=== PATIENT | male | born 1965 | race African-American/Black ===

== ENCOUNTER 2022-06-30 10:13 | Emergency (ER) | payer MEDICAID ==
[2022-06-30] MEDS ORDERED: KETOROLAC 30 MG/ML VIAL IM STA (12:40)
--- NOTE | 2022-06-30 12:43 | ED Physician Documentation ---
History of Present Illness - Stated complaint Stated Complaint: BACK PX - Chief complaint Chief Complaint: Back Pain - Additonal information Additional information: Very pleasant 56-year-old male who has a history of cerebral palsy presents to the emergency department for evaluation of acute right lower back pain. Reports that it began yesterday when he was simply bending over. He states that due to the cerebral palsy he occasionally does have back pain because he knows that he walks differently. He is had no falls or trauma. No saddle anesthesia loss of bowel or bladder function. Denies any history of cancer, diabetes, injection drug use. His friend did give him 3 Tylenol over the course the day yesterday which he reports moderately improved the pain. Review of Systems Constitutional: denies: Fever, Chills : denies: Testicular pain Skin: reports: Reviewed and negative Musculoskeletal: reports: Back pain. denies: Neck pain, Joint pain, Extremity swelling Neurologic: reports: Reviewed and negative Psychiatric: reports: Reviewed and negative PD PAST MEDICAL HISTORY - Present Medications Home Medications: Ambulatory Orders Medication Instructions Recorded Confirmed Cyclobenzaprine [Flexeril] 10 mg PO TID PRN #20 tablet 06/30/22 Ibuprofen [Motrin] 600 mg PO TID #20 tab 06/30/22 - Allergies Allergies/Adverse Reactions: Allergies Allergy/AdvReac Type Severity Reaction Status Date / Time No Known Drug Allergies Allergy Verified 06/30/22 11:07 PD ED PE EXPANDED - General General: Alert, No acute distress - Back Back: Soft tissue tenderness. No: Vertebral tenderness (No midline tenderness of the thoracic lumbar spinous processes. Reduced forward flexion range of motion of the lower lumbar spine. Some tenderness elicited with movement on the right paraspinous muscles. No radiation to the abdomen, scrotum/testes or lower leg. Negative straight leg bilaterally), Straight leg raise + R, Straight leg raise + L, CVA TTP right - Derm Derm: Normal color, Warm and dry. No: Rash - Extremities Extremities: Other (Mildly antalgic gait which patient reports to be his normal given height discrepancy in the setting of cerebral palsy. Motor strength is 5 5 bilateral lower extremities. No paresthesias.) - Neuro Neuro: Alert and Oriented X 3, CNII-XII intact - GCS Eye Opening: Spontaneous Motor: Obeys Commands Verbal: Oriented Total: 15 Results - Vitals Vitals: Vital Signs - 24 hr 06/30/22 11:03 Temperature 36.7 C Heart Rate 56 L Respiratory 14 Rate Blood Pressure 140/70 H O2 Saturation 98 Oxygen O2 Source Room air PD Medical Decision Making - ED course Complexity details: reviewed results, considered differential, d/w patient ED course: 56-year-old male presents emergency department for evaluation of 2 days acute right low back pain without radiation. He does have cerebral palsy and a limp associated with this. He thinks that he often compensates on his right side due to the limp. Pain began when he was simply bending over yesterday. Pain is reproducible on movement today. He has no saddle anesthesia, loss of bowel or bladder function. Given lack of fevers, history of diabetes or IVDA I have low suspicion for an epidural spinous abscess. Patient was administered a single dose of Toradol here in the ER with moderate relief of pain. He will be discharged with prescription for ibuprofen and Flexeril. I have made the recommendation for him to follow closely with his primary care doctor in order to obtain a referral to physical therapy or therapist who specializes in movement disorders. Clinically given the lack of falls and trauma imaging was deferred. We did discuss the usual and routine emergent return precautions Departure - Departure Disposition: 01 Home, Self Care Clinical Impression: History of cerebral palsy Right low back pain Qualifiers: Chronicity: acute Sciatica presence: without sciatica Qualified Code(s): M54.50 - Low back pain, unspecified Condition: Stable Record reviewed to determine appropriate education?: Yes Instructions: ED Spasm Back No Trauma, Flexeril Prescriptions: Cyclobenzaprine [Flexeril] 10 mg PO TID PRN #20 tablet PRN Reason: Spasms Ibuprofen [Motrin] 600 mg PO TID #20 tab Comments: David you came to the emergency department today because you have some pain in your right low back. You do have a limp which changes the way that you are body moves as you has the history of cerebral palsy. I suspect that your pain is going to get better over the next few days by using ibuprofen as prescribed and taken with food. This will help with inflammation. For muscle spasms I have sent a prescription for Flexeril to the [facility]. With your history of cerebral palsy I recommend that you request a referral to a physical therapist that specializes in movement disorders. They can help you in the long-term with your low back pain. If at any point you find that you have numbness in your genital area, lose control of your bowel or bladder function or have worsening symptoms then please return immediately to the ER for second evaluation
[2022-06-30 13:41] VITALS: BP 144/87
== END 2022-06-30 13:41 | disposition home or self-care (01) ==
LOC: ED 10:13
DX: M54.50 Low back pain, unspecified (principal); G80.9 Cerebral palsy, unspecified
CPT/HCPCS: 96372; 99283